=== PATIENT | female | born 1965 | race Caucasian/White ===

== ENCOUNTER → 2021-12-11 11:00 | Outpatient (CLI) | payer OTHER, SELFPAY ==
[2021-12-11 18:28] LABS: Basophils # 0.1 K/mm3 (0-0.2); Basophils % 0.6 % (0.1-2.0); Eosinophils # 0.5 K/mm3 (0.0-0.4); Hematocrit 41.5 % (37.0-47.0); Hemoglobin 13.3 g/dL (12.2-16.2); Lymphocytes # 2.3 K/mm3 (0.7-4.5); Lymphocytes % 23.7 % (10-50); Mean Corpuscular HGB Conc 32.1 g/dL (31.8-35.4); Mean Corpuscular Hemoglobin 28.4 pg (27.0-31.2); Mean Corpuscular Volume 88.3 fl (81-99); Mean Platelet Volume 8.3 fl (7.4-10.4); Monocytes # 0.4 K/mm3 (0.1-1.0); Monocytes % 4.3 % (1.7-9.3); Neutrophils # 6.5 K/mm3 (1.8-7.8); Neutrophils % 66.4 % (37.0-80.0); Platelet Count 401 K/mm3 (142-424); Red Cell Distribution Width 14.2 % (11.5-17.5); White Blood Count 9.7 K/mm3 (4.8-10.8)
[2021-12-11 18:38] LABS: Alanine Aminotransferase 21 U/L (12-78); Albumin Level 4.1 g/dl (3.5-5.0); Albumin/Globulin Ratio 1.4 (1.1-1.8); Alkaline Phosphatase 93 U/L (38-126); Anion Gap 15.6 mEq/L (5-15); Aspartate Amino Transferase 22 U/L (14-36); Blood Urea Nitrogen 16 mg/dl (7-17); Calcium 9.1 mg/dl (8.4-10.2); Carbon Dioxide 28 mmol/L (22.0-30.0); Chloride 99 mmol/L (98-107); Chol/HDL Ratio 5.4 (1-3.5); Cholesterol 233 mg/dl (140-200); Estimated Glomerular Filt Rate 86 ml/min (>60); GFR (African American) 104 ML/MIN (>60); Globulin 2.9 g/dL (1.3-3.2); Glucose 91 mg/dl (74-100); HDL Cholesterol 43 mg/dl (40-60); Potassium 4.6 mmoL/L (3.5-5.1); Sodium 138 mmol/L (136-145); Triglycerides 191 mg/dl (30-150); VLDL Cholesterol 38 mg/dL (0-40)
[2021-12-11 18:41] LABS: Bilirubin,Total < 0.1 mg/dl (0.2-1.3)
[2021-12-11 18:48] LABS: Creatinine,Urine Random 79 mg/dL (Not Estab.)
[2021-12-11 18:49] LABS: Direct LDL Cholesterol 139.91 mg/dL (100-129); Microalbumin < 6.000 mg/L (0-16.7)
[2021-12-11 19:09] LABS: Thyroid Stimulating Hormone 2.51 uIU/mL (0.465-4.68)
== END ==
PROVIDERS: PCP Nurse Practitioner; Visit Provider Nurse Practitioner
DX: I10 Essential (primary) hypertension (principal); E11.9 Type 2 diabetes mellitus without complications
CPT/HCPCS: 80053; 80061; 82043; 82570; 84443; 85025

== ENCOUNTER 2022-04-09 09:15 | Day surgery (SDC) | payer OTHER, SELFPAY ==
[2022-04-05 16:56] VITALS: BMI 41.5
[2022-04-09] VITALS (7 sets, daily range): BP systolic 131–166; BP diastolic 60–98; PULSE 72–100; RESP 16–18; TEMP 36.2–36.6; O2SAT 96–99; BMI 44.1
== END 2022-04-09 11:50 | disposition home or self-care (01) ==
PROVIDERS: PCP Nurse Practitioner; Visit Provider Ophthalmology
PROC: (CPT 66984; principal; 2022-04-09 12:30)
DX: H25.811 Combined forms of age-related cataract, right eye (principal)
CPT/HCPCS: 66984; V2632

== ENCOUNTER 2022-04-30 09:31 | Day surgery (SDC) | payer OTHER, SELFPAY ==
[2022-04-30] VITALS (7 sets, daily range): BP systolic 142–171; BP diastolic 70–92; PULSE 66–82; RESP 16–18; TEMP 36.2; O2SAT 97–100; BMI 44.1
== END 2022-04-30 13:20 | disposition home or self-care (01) ==
PROVIDERS: PCP Nurse Practitioner; Visit Provider Ophthalmology
PROC: (CPT 66984; principal; 2022-04-30 13:00)
DX: Z79.899 Other long term (current) drug therapy; H25.9 Unspecified age-related cataract
CPT/HCPCS: 66984; V2632

== ENCOUNTER → 2022-07-23 09:19 | Outpatient (CLI) | payer OTHER, SELFPAY ==
[2022-07-22 18:44] LABS: Basophils % 0.4 % (0.1-2.0); Eosinophils # 0.3 K/mm3 (0.0-0.4); Eosinophils % 3.4 % (0.1-12.0); Hematocrit 39.8 % (37.0-47.0); Hemoglobin 13.4 g/dL (12.2-16.2); Lymphocytes # 2.1 K/mm3 (0.7-4.5); Lymphocytes % 22.5 % (10-50); Mean Corpuscular HGB Conc 33.5 g/dL (31.8-35.4); Mean Corpuscular Hemoglobin 28.3 pg (27.0-31.2); Mean Corpuscular Volume 84.5 fl (81-99); Mean Platelet Volume 8.3 fl (7.4-10.4); Monocytes # 0.4 K/mm3 (0.1-1.0); Monocytes % 4.2 % (1.7-9.3); Neutrophils # 6.4 K/mm3 (1.8-7.8); Neutrophils % 69.5 % (37.0-80.0); Platelet Count 359 K/mm3 (142-424); Red Blood Count 4.71 M/mm3 (4.20-5.40); White Blood Count 9.3 K/mm3 (4.8-10.8)
[2022-07-22 18:48] LABS: C-Reactive Protein 8.5 mg/L (0-4)
[2022-07-22 19:23] LABS: Erythrocyte Sedimentation Rate 23 mm/hr (0-30)
[2022-07-29 09:35] LABS: Lyme B. burgdorferi PCR Blood Negative (Negative)
== END ==
PROVIDERS: PCP Nurse Practitioner; Visit Provider Nurse Practitioner
DX: L08.9 Local infection of the skin and subcutaneous tissue, unspecified (principal); S40.862A Insect bite (nonvenomous) of left upper arm, initial encounter; W57.XXXA Bitten or stung by nonvenomous insect and other nonvenomous arthropods, initial encounter
CPT/HCPCS: 85025; 85651; 86140; 87476

== ENCOUNTER → 2023-01-07 10:50 | Outpatient (CLI) | payer OTHER, SELFPAY ==
[2023-01-07 17:53] LABS: Basophils # 0.1 K/mm3 (0-0.2); Basophils % 0.4 % (0.1-2.0); Eosinophils # 0.6 K/mm3 (0.0-0.4); Eosinophils % 5.3 % (0.1-12.0); Hematocrit 38.5 % (37.0-47.0); Hemoglobin 13.1 g/dL (12.2-16.2); Lymphocytes # 2.3 K/mm3 (0.7-4.5); Lymphocytes % 21.5 % (10-50); Mean Corpuscular HGB Conc 34.1 g/dL (31.8-35.4); Mean Corpuscular Hemoglobin 29.6 pg (27.0-31.2); Mean Corpuscular Volume 86.6 fl (81-99); Mean Platelet Volume 9.1 fl (7.4-10.4); Monocytes # 0.5 K/mm3 (0.1-1.0); Monocytes % 4.6 % (1.7-9.3); Neutrophils # 7.3 K/mm3 (1.8-7.8); Neutrophils % 68.1 % (37.0-80.0); Platelet Count 352 K/mm3 (142-424); Red Blood Count 4.44 M/mm3 (4.20-5.40); Red Cell Distribution Width 14.2 % (11.5-17.5); White Blood Count 10.7 K/mm3 (4.8-10.8)
[2023-01-07 17:58] LABS: Alanine Aminotransferase 29 U/L (12-78); Albumin/Globulin Ratio 1.4 (1.1-1.8); Alkaline Phosphatase 82 U/L (38-126); Aspartate Amino Transferase 42 U/L (14-36); Bilirubin,Total 0.2 mg/dl (0.2-1.3); Blood Urea Nitrogen 26 mg/dl (7-17); Calcium 9.2 mg/dl (8.4-10.2); Carbon Dioxide 28 mmol/L (22.0-30.0); Chloride 100 mmol/L (98-107); Chol/HDL Ratio 6.9 (1-3.5); Cholesterol 241 mg/dl (140-200); Estimated Glomerular Filt Rate 57 ml/min (>60); GFR (African American) 69 ML/MIN (>60); Globulin 2.9 g/dL (1.3-3.2); Glucose 100 mg/dl (74-100); HDL Cholesterol 35 mg/dl (40-60); Sodium 137 mmol/L (136-145); Total Protein,Serum 6.9 g/dl (6.3-8.2); Triglycerides 309 mg/dl (30-150); VLDL Cholesterol 62 mg/dL (0-40)
[2023-01-07 18:09] LABS: Direct LDL Cholesterol 141.98 mg/dL (100-129)
[2023-01-07 18:29] LABS: Thyroid Stimulating Hormone 1.68 uIU/mL (0.465-4.68)
[2023-01-07 19:23] LABS: Hemoglobin A1C 5.6 % (4.0-6.0)
[2023-01-07 20:37] LABS: Microalbumin < 6.000 mg/L (0-16.7)
[2023-01-07 20:39] LABS: Creatinine,Urine Random 122 mg/dL (Not Estab.)
== END ==
LOC: LAB.DROPOF 01-08 10:50
PROVIDERS: PCP Nurse Practitioner; Visit Provider Nurse Practitioner
DX: E78.5 Hyperlipidemia, unspecified (principal); I10 Essential (primary) hypertension; Z87.891 Personal history of nicotine dependence
CPT/HCPCS: 80053; 80061; 82043; 82570; 83036; 84443; 85025

== ENCOUNTER 2024-09-29 11:14 | Outpatient (CLI) | payer OTHER, SELFPAY ==
--- OUTSIDE RECORDS SUMMARY | 2024-09-29 11:20 | XMS_ITS | Clinical Summary ---
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 Active losartan (COZAAR) 50 mg Oral TabletIndications :Essential hypertension Take 1 Tablet by mouth 2 times daily. 180 Tablet 1 02/28/2021 Active Active Problems Problem Noted Date Diagnosed Date Positive colorectal cancer screening using Colog uard test 05/23/2020 Essential hypertension 09/14/2019 Urge incontinence of urine 09/14/2019 Obesity, Class III, BMI 40-49.9 (morbid obesity) 09/14/2019 Skin lesion of breast 09/14/2019 Personal history of tobacco use 09/14/2019 Overview (09/14/2019): Smoking cessation advised Personal history of nicotine dependence 09/14/19 20 Medical History Medical History Date Comments Hypertension Family History Medical History Relation Name Comments No Known Problems Brother No Known Problems Daughter Ulcerative Colitis Father peritonit is related to bleeding ulcer, had injury to his head Cancer Mother in the chest wa ll. heavy smoker. at age 55. No Known Problems Sister No Known Problems Son Relation Name Status Comments Brother Daughter Father Mother Sister Son Social History Tobacco Use Types Packs/Day Years Used Date Smoking Tobacco: Every Day Cigarettes 1 45.5 Started: 03/17/1979 Smokeless Tobacco: Never Alcohol Use Standard Drinks/Week Comments Yes 0 (1 standard drink = 0.6 oz pur e alcohol) On weekends, socially Sexually Active Control Partners Comments Yes Male Comments No Sex and Gender Information Value Date Recorded Sex Assigned at Not on file Legal Sex Female 8:30 PM EDT Gender Identity Not on file Sexual Orientation Not on file 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 Not on file Not on file Not on file Obstetrics History Last Filed Vital Signs Vital Sign Reading Time Taken Comments Blood Pressure 138/88 05/23/2020 10:58 AM EST Pulse 70 05/23/2020 10:58 AM EST Temperature 36.3 C (97.3 F) 05/23/2020 10:58 AM EST Respiratory Rate 18 05/23/2020 10:58 AM EST Oxygen Saturation 98% 05/23/2020 10:58 AM EST Inhaled Oxygen Concentration - - Weight 117.9 kg (260 lb) 05/23/2020 10:58 AM EST Height 165.1 cm (5' 5 ) 09/14/2019 10:55 AM EDT Body Mass Index 43.27 09/14/2019 10:55 AM EDT Plan of Treatment Health Maintenance Due Date Last Done Comments Annual Wellness Exam 1967 Hepatitis C Screening 1982 DTaP/TDaP/Td (1 - Tdap) 1983 Cervical Cancer Screening 1985 Pap Smear 1985 HPV/Pap Cotest 1994 Breast Cancer Screening 2004 Colonoscopy 2009 FIT 2009 Sigmoidoscopy 2009 Virtual Colonography 2009 Low Dose Lung Cancer Screening 2014 Pneumococcal Vaccine 50+ (1 of 1 - PCV) 2014 Zoster (1 of 2) 2014 Cologuard 09/22/2022 09/23/2019, 09/23/2019 Colon Cancer Screening 09/22/2022 COVID-19 Vaccine (1 - 2023-2 5 season) 2023 RSV or 60+ (1 - Ris k 60-74 years 1-dose series) 2024 Influenza Vaccine (#1) 2024 Hepatitis B Vaccine Aged Out No longe r eligible based on patient's age to complete this topic Meningococcal B Vaccine Aged Out No l onger eligible based on patient's age to complete this topic Goals Goal Patient Goal Type Associated Problems Recent Progress Patient-Stated? Author Blood Pressure < 140/90 Blood Pressure 138/88(2020 10:58 AM EST) No Marisela Clark APRN Maintain a healthy diet, exercise regularly and maintain an ideal body weight General No Yasmine Mcmahon RMA Stay Tobacco Free Lifestyle No Marisela Clark APRN Procedures Procedure Name Priority Date/Time Associated Diagnosis Comments COLOGUARD Routine 09/23/2019 8:00 AM EDT Special screening for malignant neoplasms, colon Screening for malignant neoplasm of the rectum Annual physical exam from Last 3 Months or Most Recently Relevant to Health Maintenance Results * (ABNORMAL) COLOGUARD (09/23/2019 8:00 AM EDT) COLOGUARD CLINICAL REPORT Positive (A) Not Applicable [facility] Comment: It is recommended that a positive Cologuard screen be clinically correlated and followed-up with a structural examination of the colon such as diagnostic colonoscopy. Colonoscopies performed for a positive Cologuard may find as the most clinically significant lesion: colorectal cancer [4.0%], advanced adenoma (including sessile serrated polyps greater than or equal to 1cm diameter) [20%] or non- advanced adenoma [31%]; or no colorectal neoplasia [45%]. These estimates are derived from a prospective cross-sectional screening study of 10,000 individuals at average risk for colorectal cancer who were screened with both Cologuard and colonoscopy. (Table 3, Aleksandr Leach et al, N Engl J Med 2014;370(14):3635-6767.) The normal value (reference range) for this assay is negative. TEST TYPE: Composite algorithmic analysis of stool DNA-biomarkers with hemoglobin immunoassay. Quantitative values of individual biomarkers are not reportable and are not associated with individual biomarker result reference ranges. PRECAUTIONS AND LIMITATIONS: Cologuard is intended for colorectal cancer screening of adults of either sex, 45 years or older, who are at average-risk for colorectal cancer (CRC). Cologuard has been approved for use by the [place]. FDA. Cologuard may produce a false negative or false positive result. A negative Cologuard test result does not guarantee the absence of CRC or advanced adenoma (pre-cancer). Patients with a negative Cologuard test result should be advised to continue participating in a colorectal cancer screening program. The screening interval for Cologuard is currently recommended at an interval of every 3 years by the [employer] and U.S. Multi-Society Task Force. A false positive result occurs when Cologuard produces a positive result, even though a colonoscopy may not find colorectal cancer or precancerous polyps. The performance of Cologuard has been established in a cross sectional study (i.e., single point in time) of average-risk adults aged 50-84. Cologuard performance in patients ages 45 to 49 years was estimated by sub-group analysis of near-age groups. Cologuard performance data in a 10,000 patient pivotal study using colonoscopy as the reference method can be accessed at the following location: [email or web address]/results. Additional description of the Cologuard test process, warnings and precautions can be found at www.cologuardtest.com. Rx only. Stool specimen (specimen) 09/23/2019 8:00 AM EDT 09/24/2019 11:23 AM EDT Marisela Clark APRN [employer] ORDERABLE S Final Result [employer] [address] [place] [address] [address] [address] [place] [phone] from Last 3 Months or Most Recently Relevant to Health Maintenance Insurance [facility] CHOICE PLUS CHOICE PLUS CHOICE PLUS
--- NOTE | 2024-09-29 11:21 | XR_ITS ---
FINAL REPORT CLINICAL HISTORY: chest pain, fatigue, nausea FINDINGS: 2 views of the chest were obtained . The heart is normal in size. The mediastinum is within normal limits. The lungs are clear. There is no pneumothorax. Osseous structures are unremarkable. IMPRESSION: No acute cardiopulmonary process. Reviewed, Interpreted and Dictated by Sai Reina MD Transcribed by Eva Barrera Authenticated and [facility]
[2024-09-29 11:56] LABS: Microscopic, Urine URINE MICROSCOPIC (MICROSCOPIC)
[2024-09-29 12:16] LABS: Hematocrit 37.5 % (37.0-47.0); Hemoglobin 12.2 g/dL (12.2-16.2); Immature Granulocytes % 0.3 %; Mean Corpuscular HGB Conc 32.5 g/dL (31.8-35.4); Mean Corpuscular Hemoglobin 27.5 pg (27.0-31.2); Mean Corpuscular Volume 84.7 fl (81-99); Nucleated Red Blood Cells % 0 %; Platelet Count 317 K/mm3 (142-424); Red Blood Count 4.43 M/mm3 (4.20-5.40); Red Cell Distribution Width-SD 42.5 fL; White Blood Count 9.9 K/mm3 (4.8-10.8)
--- NOTE | 2024-09-29 12:26 | ECG_ITS ---
APPROVED REPORT Exam: Resting ECG HR:66 bpm ECG Measurements Heart Rate 66 AXES [place] 160 P 44 QRSd 85 QRS 23 QT 383 T 26 QTc 396 Conclusion SINUS RHYTHM LOW QRS VOLTAGE IN PRECORDIAL LEADS [QRS DEFLECTION < 1.0 mV IN CHEST LEADS] BORDERLINE ECG UNCONFIRMED REPORT Electronically signed by : Isiah Jung MD 09/29/2024 16:16:45
[2024-09-29 12:29] LABS: Hemoglobin A1C 6.8 % (4.0-6.0)
[2024-09-29 12:36] LABS: Albumin Level 4.2 g/dl (3.5-5.0); Chloride 98 mmol/L (98-107); Potassium 3.8 mmoL/L (3.5-5.1); Sodium 137 mmol/L (136-145)
[2024-09-29 12:38] LABS: Blood Urea Nitrogen 24 mg/dl (7-17); Creatinine,Serum 0.90 mg/dl (0.52-1.04); Estimated Glomerular Filt Rate 64 ml/min (>60); GFR (African American) 77 ML/MIN (>60)
[2024-09-29 12:39] LABS: Alanine Aminotransferase 32 U/L (12-78); Albumin/Globulin Ratio 1.4 (1.1-1.8); Alkaline Phosphatase 75 U/L (38-126); Anion Gap 11.8 mEq/L (5-15); Aspartate Amino Transferase 27 U/L (14-36); Bilirubin,Total 0.1 mg/dl (0.2-1.3); Calcium 9.3 mg/dl (8.4-10.2); Carbon Dioxide 31 mmol/L (22.0-30.0); Cholesterol 217 mg/dl (140-200); Globulin 2.9 g/dL (1.3-3.2); Glucose 104 mg/dl (74-100); Total Protein,Serum 7.1 g/dl (6.3-8.2); Triglycerides 233 mg/dl (30-150)
[2024-09-29 12:48] LABS: Bilirubin,Urine Negative (Negative); Color,Urine YELLOW (Yellow); Glucose,Urine (UA) Negative (Negative); Ketones,Urine Negative (Negative); Leukocyte Esterase,Urine Negative (Negative); PH,Urine 5.5 (5.0-8.5); Protein,Urine Negative (Negative); Specific Gravity, Urine 1.025 (1.005-1.030); Urobilinogen,Urine 0.2 EU/dl (0.2)
[2024-09-29 12:56] LABS: Troponin I < 0.01 ng/ml (0.00-0.034)
[2024-09-29 12:59] LABS: Bacteria,Urine Trace /lpf; Mucus,Urine Trace /lpf; RBC,Urine Occasional #/hpf (0-3); WBC,Urine Occasional #/hpf (0-3)
[2024-09-29 13:10] LABS: Thyroid Stimulating Hormone 1.93 uIU/mL (0.465-4.68)
[2024-09-29 14:13] LABS: HDL Cholesterol 43 mg/dl (40-60)
[2024-09-30 14:17] LABS: Lyme Ab CIA Positive (Negative); Lyme Ab IgM CIA Positive (Negative)
== END 2024-09-29 23:59 | disposition home or self-care (01) ==
LOC: LAB 11:16
PROVIDERS: PCP Nurse Practitioner; Visit Provider Nurse Practitioner
DX: R94.31 Abnormal electrocardiogram [ECG] [EKG] (principal); E78.5 Hyperlipidemia, unspecified; I10 Essential (primary) hypertension; R07.9 Chest pain, unspecified; R53.83 Other fatigue; R51.9 Headache, unspecified; R35.0 Frequency of micturition; F17.210 Nicotine dependence, cigarettes, uncomplicated; R11.0 Nausea; S40.861A Insect bite (nonvenomous) of right upper arm, initial encounter; W57.XXXA Bitten or stung by nonvenomous insect and other nonvenomous arthropods, initial encounter
CPT/HCPCS: 36415; 71046; 80053; 80061; 81001; 82043; 82570; 83036; 84443; 84484; 85025; 86618; 93005